=== PATIENT | female | born 2000 | race Caucasian/White ===

== ENCOUNTER → 2024-06-19 06:26 | Outpatient (CLI) | payer OTHER, SELFPAY ==
--- NOTE | 2024-06-19 06:28 | DI.US.S_ITS ---
PROCEDURE: US OB <= 14 WEEKS FETUS INDICATIONS: dating US OUTSIDE/PRIOR DATING DATA: First dating scan (date and location): 06/19/2024. Estimated date of delivery (NADJA) from first dating scan: 01/20/2020. TECHNIQUE: Real-time scanning was performed of the fetus and maternal pelvic organs, with image documentation. Endovaginal scanning was also performed to better visualize the fetus and maternal ovaries. COMPARISON: None. FINDINGS: Embryo: pole with crown-rump length measuring 2.6 cm, consistent with 9 weeks and 3 days. Heart rate: 152 beats per minute Maternal organs: Ovaries are within normal limits. IMPRESSION: Single live intrauterine consistent 9 weeks and 3 days. We strive to produce accurate, complete, and clear reports of imaging services. To assist us in improving patient care, this report was composed using standard report templates and voice recognition software. Therefore, it may contain abnormal punctuation, insertions and/or omissions. Occasional wrong-word or sound-alike substitutions may occur. Though we review the report and make efforts to correct it, we do recommend that the report be read carefully in proper context to recognize any text inaccuracies. Dictated by: Anoop Shin M.D. on 06/19/2024 at 8:33 Approved by: Anoop Shin M.D. on 06/19/2024 at 8:36
== END ==
LOC: US 06:28
PROVIDERS: Referring Provider Obstetrics & Gynecology; Visit Provider Obstetrics & Gynecology
DX: Z34.01 Encounter for supervision of normal first pregnancy, first trimester (principal); Z3A.09 9 weeks gestation of pregnancy
CPT/HCPCS: 76801; 76817

== ENCOUNTER → 2024-06-30 13:15 | Outpatient (CLI) | payer OTHER, SELFPAY ==
[2024-06-30 14:12] LABS: Add Manual Diff / Slide Review NO; Basophils Absolute Auto 0 /uL (0-100); Basophils Percent Auto 0.3 % (0-2); Eosinophils Absolute Auto 300 /uL (0-450); Eosinophils Percent Auto 2.9 % (2-4); Hematocrit 37.6 % (36-46); Lymphocytes Absolute Auto 1900 /uL (1100-4500); Lymphocytes Percent Auto 18.3 % (25-40); Mean Corpuscular HGB Conc 31.9 % (30-36); Mean Corpuscular Hemoglobin 20.6 PG (26-34); Mean Corpuscular Volume 64.4 fL (80-100); Monocytes Absolute Auto 800 /uL (0-900); Monocytes Percent Auto 7.8 % (3-14); Neutrophils Absolute Auto 7200 /uL (1500-7000); Neutrophils Percent Auto 70.7 % (50-75); Platelet Count 292 X10^3/uL (150-400); Red Blood Cell Count 5.84 X10^6/uL (4.0-5.2); Red Cell Distribution Width 16.1 % (11.6-14.8); White Blood Cell Count 10.2 X10^3/uL (4.5-11.0)
[2024-06-30 14:29] LABS: Anisocytosis 2+; Microcytosis 2+; Ovalocytes 1+
[2024-07-01 04:40] LABS: RPR Screen Non Reactive (Non Reactive)
[2024-07-02 09:36] LABS: Varicella IgG Antibody Reactive (Non Reactive)
[2024-07-02 19:45] LABS: HIV 1 & 2 Ab/Ag 4th Gen Combo NEGATIVE (NEGATIVE); Hep C Virus Ab w/Reflex Quant NEGATIVE s/c (NEGATIVE); Hepatitis B Surface Antigen NEGATIVE s/c (NEGATIVE); Rubella Antibody IgG 7.2 IU/mL (>15)
== END ==
PROVIDERS: Obstetrics & Gynecology; PCP Nurse Practitioner Primary Care; Referring Provider Nurse Practitioner Primary Care; Visit Provider Emergency Medicine
DX: Z34.00 Encounter for supervision of normal first pregnancy, unspecified trimester (principal)
CPT/HCPCS: 80055; 86787; 86803; 86850; 86900; 86901; 87086; 87389

== ENCOUNTER → 2024-08-28 14:55 | Outpatient (CLI) | payer OTHER, SELFPAY ==
--- NOTE | 2024-08-28 14:56 | DI.US.S_ITS ---
PROCEDURE: US OB >= 14 WEEKS FETUS INDICATIONS: 20 WEEK ANATOMY OUTSIDE/PRIOR DATING DATA: Last menstrual period (LMP): Unknown. LMP-based estimated date of delivery (NADJA): Not applicable. First dating scan (date and location): June 19, 2024. Estimated date of delivery (NADJA) from first dating scan: January 19, 2025. TECHNIQUE: Real-time scanning was performed of the fetus, with image documentation and biometric measurements. Endovaginal scanning: Not performed COMPARISON: [facility], OB <= 14 WEEKS FETUS, 06/19/2024, 7:03. FINDINGS: General: A single living intrauterine gestation is present. Presentation: Vertex. Placenta: Placental position is anterior , without previa. Amniotic fluid index: 18.7 cm, normal range is 5-24 cm. Single deepest vertical pocket is 5.8 cm. heart rate: 149 beats per minute. Maternal cervical canal: 3.6 cm long. Normal lower limit is 2.5 cm. biometrics: Biparietal diameter: 4.6 cm, 20 weeks and 0 days Head circumference: 17.0 cm, 19 weeks and 4 days Abdominal circumference: 14.9 cm, 20 weeks and 1 day Femur length: 3.1 cm, 19 weeks and 5 days Clinically estimated gestational age: 19 weeks and 3 days Composite gestational age from present scan: 19 weeks and 6 days Estimated weight and percentile: 322 g which correlates with the 75th percentile for gestational age. Anatomic survey: Neuro: Ventricles are non-dilated at less than 10 mm. Cisterna magna is normal at 3-11 mm. Cerebellum is normal in size and morphology. Nuchal skin fold: Normal at less than 6 mm between 14-21 weeks gestational age. Face: Nose and lips, facial profile are normal. Spine: No evidence for spina bifida. Heart: 4-chambered heart is present, with normal ventricular outflow tracts. Single echogenic focus within the left ventricle. Diaphragm: Diaphragm is intact. Stomach: Left-sided stomach is present. Kidneys: No hydronephrosis. Normal is less than 5 mm in 2nd trimester, less than 7 mm in 3rd trimester. Cord: 3-vessel cord has orthotopic insertion. Bladder: Normal in size. Extremities: All 4 extremities identified. IMPRESSION: Single living intrauterine gestation with estimated sonographic gestational age of approximately 19 weeks and 6 days. Normal interval growth has occurred. Estimated weight of approximately 322 g which correlates with the 75th percentile for gestational age. Small echogenic focus identified within the left ventricle. In the absence of other anatomic abnormalities or maternal risk factors, this finding is most likely a normal variant either representing the normal papillary muscle or chordae tendinae and is of doubtful clinical significance. Otherwise, normal routine second trimester anatomic screening survey. We strive to produce accurate, complete, and clear reports of imaging services. To assist us in improving patient care, this report was composed using standard report templates and voice recognition software. Therefore, it may contain abnormal punctuation, insertions and/or omissions. Occasional wrong-word or sound-alike substitutions may occur. Though we review the report and make efforts to correct it, we do recommend that the report be read carefully in proper context to recognize any text inaccuracies. Dictated by: Michael Crews M.D. on 08/29/2024 at 12:39 Approved by: Michael Crews M.D. on 08/29/2024 at 12:44
== END ==
LOC: US 14:56
PROVIDERS: PCP Nurse Practitioner Primary Care; Referring Provider Obstetrics & Gynecology; Visit Provider Obstetrics & Gynecology
DX: Z34.02 Encounter for supervision of normal first pregnancy, second trimester (principal); Z3A.19 19 weeks gestation of pregnancy
CPT/HCPCS: 76811

== ENCOUNTER → 2024-09-10 15:34 | Outpatient (CLI) | payer OTHER, SELFPAY ==
[2024-09-10 16:52] LABS: Bilirubin Urine UA NEGATIVE (NEGATIVE); Color Urine UA YELLOW; Glucose Urine UA NEGATIVE (Negative); Ketones Urine UA TRACE (NEGATIVE); Leukocyte Esterase Urine UA NEGATIVE (NEGATIVE); Nitrite Urine UA NEGATIVE (Negative); Occult Blood Urine UA NEGATIVE (Negative); Protein Urine UA TRACE (Negative); Specific Gravity Urine UA 1.020 (1.000-1.035); Urobilinogen Urine UA 1.0 E.U./dL (0.2)
[2024-09-10 16:58] LABS: pH Urine UA 7.0 (4.5-8.0)
[2024-09-10 16:59] LABS: Appearance Urine UA SL CLOUDY; Culture Indicated Urine Cult Not Indicated
== END ==
PROVIDERS: PCP Nurse Practitioner Primary Care; Visit Provider Obstetrics & Gynecology
DX: R82.998 Other abnormal findings in urine (principal)
CPT/HCPCS: 81001

== ENCOUNTER → 2024-09-10 16:15 | Outpatient (CLI) | payer OTHER, SELFPAY ==
[2024-09-10 17:21] LABS: HEMOLYSIS < 15 (0-50); Iron 80 ug/dL (37-170)
[2024-09-10 17:33] LABS: Percent Iron Saturation 27 % (15-50); Total Iron Binding Capacity 292 ug/dL (265-497); Transferrin 256 mg/dL (206-381)
== END ==
PROVIDERS: Obstetrics & Gynecology; PCP Nurse Practitioner Primary Care; Referring Provider Obstetrics & Gynecology; Visit Provider Obstetrics & Gynecology
DX: O99.119 Other diseases of the blood and blood-forming organs and certain disorders involving the immune mechanism complicating pregnancy, unspecified trimester (principal); D75.89 Other specified diseases of blood and blood-forming organs
CPT/HCPCS: 81001; 82105; 83021; 83540; 83550

== ENCOUNTER → 2024-10-21 12:55 | Outpatient (CLI) | payer OTHER, SELFPAY ==
[2024-10-21 14:56] LABS: Hematocrit 34.6 % (36-46); Hemoglobin 10.9 g/dL (12.0-16.0)
[2024-10-21 15:24] LABS: GTT (PREG) 1 Hour PP 50gm Dose 121 mg/dL (76-139)
== END ==
PROVIDERS: PCP Nurse Practitioner Primary Care; Referring Provider Nurse Practitioner Primary Care; Visit Provider Obstetrics & Gynecology
DX: Z34.02 Encounter for supervision of normal first pregnancy, second trimester (principal)
CPT/HCPCS: 36415; 82950; 85014; 85018; 86850

== ENCOUNTER 2024-11-13 10:57 | Outpatient (CLI) | payer OTHER, SELFPAY | END 2024-11-13 11:41 | disposition home or self-care (01) | LOC: LABOR 11:13 → OB 12:11 | PROVIDERS: PCP Nurse Practitioner Primary Care; Referring Provider Obstetrics & Gynecology; Visit Provider Obstetrics & Gynecology | DX: O36.8130 Decreased fetal movements, third trimester, not applicable or unspecified (principal); Z3A.30 30 weeks gestation of pregnancy | CPT/HCPCS: 59025; G0378; G0379 ==

== ENCOUNTER → 2024-12-02 15:39 | Outpatient (CLI) | payer OTHER, SELFPAY ==
--- NOTE | 2024-12-02 15:40 | DI.US.S_ITS ---
PROCEDURE: US OB FOLLOW UP INDICATIONS: LEFT VENTRICLE ECHOGENIC FOCI. GROWTH. OUTSIDE/PRIOR DATING DATA: The calculations are made using the NADJA of 01/19/2025. TECHNIQUE: Real-time scanning was performed of the fetus, with image documentation and biometric measurements. Endovaginal scanning: Not performed COMPARISON: [facility], , US OB >= 14 WEEKS FETUS, 08/28/2024, 15:11. FINDINGS: General: A single living intrauterine gestation is present. Presentation: Vertex. Placenta: Placental position is anterior , without previa. Amniotic fluid index: 10.2 cm, normal range is 5-24 cm. Single deepest vertical pocket is 5.0 cm. heart rate: 130 beats per minute. Maternal cervical canal: Not evaluated. biometrics: Biparietal diameter: 8.4 cm, 33 weeks 6 days Head circumference: 30.3 cm, 33 weeks 5 days Abdominal circumference: 30.2 cm, 34 weeks 1 day Femur length: 6.5 cm, 33 weeks 3 days Clinically estimated gestational age: 33 weeks 1 day Composite gestational age from present scan: 33 weeks 6 days Estimated weight and percentile: 2291 g, 64% Other: Not applicable. IMPRESSION: 1. Single live intrauterine consistent with 33 weeks and 6 days. 2. Estimated weight is in the 64th percentile. 3. Redemonstration of possible echogenic intracardiac focus versus echogenic chordae tendineae. 4. The urinary bladder and stomach appear prominent, of uncertain clinical significance. Consider follow-up ultrasound. We strive to produce accurate, complete, and clear reports of imaging services. To assist us in improving patient care, this report was composed using standard report templates and voice recognition software. Therefore, it may contain abnormal punctuation, insertions and/or omissions. Occasional wrong-word or sound-alike substitutions may occur. Though we review the report and make efforts to correct it, we do recommend that the report be read carefully in proper context to recognize any text inaccuracies. Dictated by: Anoop Shin M.D. on 12/03/2024 at 8:44 Approved by: Anoop Shin M.D. on 12/03/2024 at 8:46
== END ==
LOC: US 15:40
PROVIDERS: PCP Nurse Practitioner Primary Care; Referring Provider Obstetrics & Gynecology; Visit Provider Obstetrics & Gynecology
DX: O28.3 Abnormal ultrasonic finding on antenatal screening of mother (principal); Z3A.33 33 weeks gestation of pregnancy
CPT/HCPCS: 76816

== ENCOUNTER → 2024-12-25 15:47 | Outpatient (CLI) | payer OTHER, SELFPAY ==
--- NOTE | 2024-12-25 15:48 | DI.US.S_ITS ---
PROCEDURE: US OB FOLLOW UP INDICATIONS: OB f/u prominent bladder OUTSIDE/PRIOR DATING DATA: Working NADJA 01/19/2025 TECHNIQUE: Real-time scanning was performed of the fetus, with image documentation and biometric measurements. Endovaginal scanning: Not obtained COMPARISON: [facility], US, OB FOLLOW UP, 12/02/2024, 16:10. FINDINGS: General: A single living intrauterine gestation is present. Presentation: Vertex. Placenta: Placental position is anterior , without previa. Amniotic fluid index: 12 cm, normal range is 5-24 cm. Single deepest vertical pocket is 3.8 cm. heart rate: 13.3 beats per minute. Maternal cervical canal: Not evaluate biometrics: Clinically estimated gestational age: 36 weeks 3 days Other: Limited view of the left ventricle on current exam. Prominent stomach and urinary bladder is unchanged. Probable appearance of a single nuchal cord. IMPRESSION: Single live intrauterine with gestational age of 36 weeks 3 days. Appearance of likely single nuchal cord. Persistent prominence of the stomach in urinary bladder. Poorly visualized left ventricle. Persistence of echogenic intraventricular focus cannot be excluded, as identified on prior exam. We strive to produce accurate, complete, and clear reports of imaging services. To assist us in improving patient care, this report was composed using standard report templates and voice recognition software. Therefore, it may contain abnormal punctuation, insertions and/or omissions. Occasional wrong-word or sound-alike substitutions may occur. Though we review the report and make efforts to correct it, we do recommend that the report be read carefully in proper context to recognize any text inaccuracies. Dictated by: Aracelis Hawkins M.D. on 12/26/2024 at 16:34 Approved by: Aracelis Hawkins M.D. on 12/26/2024 at 16:38
== END ==
LOC: US 15:48
PROVIDERS: PCP Nurse Practitioner Primary Care; Referring Provider Obstetrics & Gynecology; Visit Provider Obstetrics & Gynecology
DX: O28.3 Abnormal ultrasonic finding on antenatal screening of mother (principal); Z3A.36 36 weeks gestation of pregnancy
CPT/HCPCS: 76816

== ENCOUNTER → 2024-12-30 09:23 | Outpatient (CLI) | payer OTHER, SELFPAY ==
[2024-12-31 13:50] LABS: Strep Grp B PCR POS for Grp B Strep
== END ==
PROVIDERS: PCP Nurse Practitioner Primary Care; Visit Provider Obstetrics & Gynecology
DX: Z36.85 Encounter for antenatal screening for Streptococcus B (principal)
CPT/HCPCS: 87653

== ENCOUNTER 2025-01-06 14:58 | Observation (INO) | payer OTHER, SELFPAY | END 2025-01-06 15:43 | disposition home or self-care (01) | PROVIDERS: Admitting Provider Obstetrics & Gynecology; PCP Nurse Practitioner Primary Care; Referring Provider Obstetrics & Gynecology; Visit Provider Obstetrics & Gynecology | DX: Z34.03 Encounter for supervision of normal first pregnancy, third trimester (principal); Z3A.38 38 weeks gestation of pregnancy | CPT/HCPCS: 59025; G0378; G0379 ==

== ENCOUNTER 2025-01-22 09:10 | Inpatient (IN) | payer OTHER, SELFPAY ==
--- NOTE | 2025-01-22 09:46 | DI.US.S_ITS ---
PROCEDURE: US OB BIOPHYSICAL PROFILE INDICATIONS: postdates OUTSIDE/PRIOR DATING DATA: The calculations are made using the NADJA of 01/19/2025. TECHNIQUE: Real-time scanning was performed of the fetus, with image documentation and biometric measurements. Biophysical profile was also obtained. Endovaginal scanning: Not performed. COMPARISON: [facility], OB FOLLOW UP, 12/25/2024, 16:24. FINDINGS: General: A single living intrauterine gestation is present. Presentation: Vertex Placenta: Placental position is anterior, without previa. Amniotic fluid index: 3.6 cm, normal range is 5-24 cm. Single deepest vertical pocket is 3.6 cm. heart rate: 143 beats per minute. Maternal cervical canal: 2.9 cm long. Normal lower limit is 2.5 cm. biometrics: Biparietal diameter: 9.3 cm, 37 weeks 6 days, 31st percentile Head circumference: 34.2 cm, 39 weeks 3 days, 28th percentile Abdominal circumference: 37.9 cm, 41 weeks 6 days, 97th percentile Femur length: 7.5 cm, 38 weeks 1 day, 12th percentile Clinically estimated gestational age: 40 weeks 3 days Composite gestational age from present scan: 39 weeks 2 days Estimated weight and percentile: 4052 g, 78th percentile Biophysical profile: Tone: 0 points. Movement: 2 points. Respiration: 2 points. Largest pocket of fluid: 2 points. IMPRESSION: 1. Single live intrauterine post term with vertex positioning. 2. Amniotic fluid index is 3.6 cm, correlate for oligohydramnios. 3. Biophysical profile score is 6 of 8, with 0 points for tone. 4. Estimated weight 4052 g, 78th percentile for gestational age. Abdominal circumference is at the 97th percentile. Approved by: Alfredo Roy M.D. on 01/22/2025 at 11:29
[2025-01-22 13:25] VITALS: BP 115/65
[2025-01-22 14:10] LABS: Hematocrit 32.9 % (36-46); Hemoglobin 10.4 g/dL (12.0-16.0); Lymphocytes Absolute Auto 1500 /uL (1100-4500); Mean Corpuscular HGB Conc 31.6 % (30-36); Mean Corpuscular Hemoglobin 19.5 PG (26-34); Mean Corpuscular Volume 61.7 fL (80-100); Platelet Count 200 X10^3/uL (150-400)
[2025-01-22 14:12] LABS: Add Manual Diff / Slide Review SLIDE REVIEW
[2025-01-22 14:27] LABS: Anisocytosis 1+; Hypochromasia 1+; Microcytosis 2+
--- NOTE | 2025-01-22 15:43 | P.HPOB_ITS ---
OB HPI Date/Time Date of admission: 01/22/25 Date Patient Seen: 01/22/25 Time Patient Seen: 15:00 History of Present Condition Chief complaint: possible SROM NADJA Calculator 2 Estimated Delivery Date Method Current WG Current Estimate 01/19/25 Ultrasound #1 40w 3d Other Estimates 01/12/25 LMP (Uncertain) 41w 3d Estimated Gestational Age (weeks): 40w3d : 1 Narrative: Pt presented after calling with concerns of SROM early this AM, awakened to bed soaking wet. Nitrazine negative on arrival with reactive Cat 1 tracing. BPP obtained significant for 07/20 with CAMELIA 3.6cm (single pocket of fluid) and patient admitted for induction vs augmentation of labor. course notable for +GBS. PMHx non-contributory. Pt endorses decreased FM, scant brown vaginal discharge without altaf bleeding, mild cramping without distinct contractions. care: good care Dating criteria OB: based on 1st trimester US only Ultrasounds: normal 1st trimester US and normal mid trimester US Obstetrical complications: none Medical complications OB: none External History : 1 Indications Indication for induction OB: other (possible high SROM, +GBS) and post dates Preadmission Labs Last OB Lab Results: 2 Blood Type A Positive Today, 13:45 Antibody Screen Negative Today, 13:45 Hct, (36-46) 32.9 % L Today, 13:45 Hgb, (12.0-16.0) 10.4 g/dL L Today, 13:45 Hep Bs Antigen, (NEGATIVE) Negative s/c 06/30/24, 13: 20 Hepatitis C Antibody, (NEGATIVE) Negative s/c 5, 13:20 Rubella Antibody, (>15) 7.2 IU/mL L 06/30/24, 13:20 VZV IgG Antibody, (Non Reactive) Reactive 5, 13:20 Glucose 1 Hr 50 gm, (76-139) 121 mg/dL 10/21/24, 1 4:05 Group B Strep (PCR) Pos for grp b strep H 12/30/24, 09:15 -: Chlamydia screen: negative, Gonorrhea screen: negative and Urine: negative -: PAP smear: Normal Genetic Screens: Cell-free DNA: Normal and Alpha-fetoprotein: Normal External Labs -: Urine: negative Evaluation Evaluation Baseline heart rate: 140 Variability: Moderate (6-25) monitor accelerations: Present Monitor Decelerations: Absent Uterine Contraction Intensity: Mild Category of Tracing: Reactive Status: Category l Dilation (cm): 1 Effacement (%): 30 Dilation: 1-2 cm Effacement: 0-30% station: -3 Position of cervix: mid Consistency: soft Guzman score: 4 Non-invasive Membranes Rupture Test: negative [facility] Medical History (Updated 11/05/24 @ 16:29 by Kevin Morales MD) Low mean corpuscular volume (MCV) during Ankle fracture (~2014) Surgical History (Updated 06/13/24 @ 07:11 by Kaitlyn Houser) Gem teeth extracted Family History (System 06/13/24 @ 07:11 by Kaitlyn Houser) Mother Depression Grandmother Hypertension Diabetes mellitus Grandfather Family estrangement Father Gout Diabetes mellitus Grandfather Diabetes mellitus Gout End stage kidney disease Hypertension Brother Depression Anxiety ADHD Social History (System 06/13/24 @ 07:11 by Kaitlyn Houser) marital status: unmarried,living together number of children: 0 household members: significant other lives independently: Yes caregiver/support person: No housing: apartment pets and animals: No education level: college (some college) occupational status: unemployed current occupational exposures/hazards: No special katherine needs: No travel history: over 6 months ago seatbelt use: always helmet use: Yes water heater temp set < 120 deg: Yes working smoke detector in home: Yes fire extinguisher in home: Yes carbon monox detector in home: Yes firearms in home: No do you feel safe at home: Yes second hand exposure: No alcohol intake: former (extremely rarely when not ) substance use type: marijuana (not while /) during the past year weight has: remained stable well-balanced diet: rarely or never daily servings fruits/ve-4 (entirely fruit, almost never eats vegetables) caffeine: No (stopped drinking Red Bull w/ +UPT) Type(s) of exercise: walking Meds Home Medications and Allergies Home Medications ?Medication ?Instructions ?Recorded ?Confirmed ?Type buspirone 7.5 mg tablet 7.5 mg PO TID 06/11/2401/22 History hydroxyzine HCl 50 mg tablet 50 mg PO BID PRN itching 06/11/24 01/22/25 History vitamin-ferrous sulfate tab PO .1 PRN provide r order 06/11/24 01/20/25 History 27 mg iron-folic acid 0.8 mg tablet sertraline 100 mg tablet 100 mg PO DAILY 06/11/2401/06 History famotidine 20 mg tablet 20 mg PO DAILY #60 tabs 09/0501/22/25 Rx breast pump #1 ea 11/05/24 01/20/25 Rx [id number] antigen-AS01E 0.5 ml IM ONCE #1 ea 12/12/2 5 01/22/25 Rx adjuvant(PF) 120 mcg/0.5 mL IM suspension, kit Allergies Allergy/AdvReac Type Severity Reaction Status Date / Time egg Allergy Intermediate Swelling Verified 01/20/25 12:19 of Lip/Tongue/Throat Review of Systems Review of Systems ROS: Yes All systems reviewed with the patient and are negative except as otherwise documented OB Exam Narrative Exam Narrative: maternal VSS/afebrile, reviewed in OBIX HENMT Head: normal to inspection Resp Effort & Inspection: normal respiratory effort and able to speak in complete sentences Cardio Rate: regular rate Extremities Lower extremity: Yes normal to inspection GI Palpation: Yes soft Other: gravid, bing cephalic 7# Other: deferred Objective Labs 01/22/25 13:45 Labs: Laboratory Results - last 24 hr 01/22/25 13:45 WBC 11.0 RBC 5.33 H Hgb 10.4 L Hct 32.9 L MCV 61.7 L MCH 19.5 L MCHC 31.6 RDW 16.5 H Plt Count 200 Neut % (Auto) 77.9 H Lymph % (Auto) 13.5 L Guadalupe % (Auto) 7.2 Eos % (Auto) 1.1 L Baso % (Auto) 0.3 Neut # (Auto) 8600 H Lymph # (Auto) 1500 Guadalupe # (Auto) 800 Eos # (Auto) 100 Baso # (Auto) 0 RBC Morphology See below Hypochromasia 1+ H Anisocytosis 1+ H Microcytosis 2+ H Blood Type A Positive Antibody Screen Negative Assessment and Plan Assessment and Plan Assessment and Plan narrative: 24yo G1 at 40w4d by early first trimester US presents with concerns for SROM, negative nitrazine but new oligohydramnios with recommendation to proceed with IOL IOL misoprostol 50mg PO q4h, reassess with planned ibarra balloon placement for additional mechanical ripening vs IV pitocin pending response CEFM/toco start abx for +GBS, possible high SROM/leak anticipate Time-Based Coding :: [TOTAL MINUTES] spent with patient and on the chart (including review of chart, obtaining history, exam, reviewing outside data, placing orders, documenting exam and treatment plan, and counseling patient) on [DATE].
[2025-01-22] MEDS: AMPICILLIN 2,000 MG in SODIUM CHLORIDE 0.9% 100 ML 200 MG IV (16:00)
[2025-01-22] MEDS: AMPICILLIN 1,000 MG in SODIUM CHLORIDE 0.9% 100 ML 100 MG IV (20:41)
[2025-01-22] MEDS: SERTRALINE 50 MG TABLET 100 MG PO (21:57)
[2025-01-22] MEDS: ZOLPIDEM 5 MG TABLET PO (22:01)
[2025-01-23 00:30] VITALS: TEMP 36.6
[2025-01-23] MEDS: ACETAMINOPHEN 325 MG TABLET 975 MG PO (00:30)
[2025-01-23] MEDS: AMPICILLIN 1,000 MG in SODIUM CHLORIDE 0.9% 100 ML 100 MG IV ×2 (00:54→08:45)
[2025-01-23] MEDS: ONDANSETRON 4 MG/2 ML INJ IV (02:33)
[2025-01-23] MEDS: LACTATED RINGERS 1,000 ML 999 ML IV (03:10)
--- NOTE | 2025-01-23 03:53 | P.PCN_ITS ---
[facility] <Nika Wilson CRNA - Last Filed: 01/23/25 04:07> Pre-procedure Procedure: Continuous Lumbar Epidural for L&D PMH/ROS narrative: Term with PMH anxiety/depression requests lumbar epidural for labor pain. PSH/Anesthesia history narrative: Prentiss teeth - PONV Exam narrative: See pre-anesthesia eval. ASA Class: II Labs: Hct 32.9 % (36-46) L 01/22/25 13:45 Plt Count 200 X10^3/uL (150-400) 01/22/25 13:45 Medications: Current Medications Generic Name Dose Route Start Last Admin Trade Name Freq PRN Reason Stop Dose Admin Carboprost Tromethamine 250 mcg 01/22/25 10:22 Carboprost 250 Mcg/Ml Ampul IM Q90M PRN Bleeding Oxytocin/Lactated Ringer's 30 unit in 500 mls @ 200 mls/hr 01/22/25 10:22 Oxytocin Premix IV CONT PRN Bleeding Protocol Tranexamic Acid 1,000 mg/ 100 mls @ 600 mls/hr 01/22/25 10:22 Sodium Chloride IV NOW PRN Bleeding Ampicillin Sodium 1,000 mg/ 100 mls @ 0 mls/hr 01/22/25 19:45 01/23/25 00:54 Sodium Chloride IV 1,000 mg/hr Q4H JEEVAN 100 mls/hr Per Protocol Administration Lidocaine HCl 20 ml 01/22/25 10:22 Lidocaine 1% 20 Ml INJ INTRA-OP PRN Post Delivery Methylergonovine Maleate 0.2 mg 01/22/25 10:22 Methylergonovine 0.2 Mg Tablet PO Q6HR PRN Heavy Bleeding Methylergonovine Maleate 0.2 mg 01/22/25 10:22 Methylergonovine 0.2 Mg/Ml Vial IM NOW PRN Bleeding Mineral Oil 30 ml 01/22/25 10:22 Mineral Oil 30 Ml Udc TOP PRN PRN Version Misoprostol 800 mcg 01/22/25 10:22 Misoprostol 200 Mcg Tablet DE NOW PRN Bleeding Misoprostol 400 mcg 01/22/25 10:22 Misoprostol 200 Mcg Tablet SL NOW PRN Bleeding Misoprostol 50 mcg 01/22/25 10:22 01/22/25 21:56 Misoprostol 25 Mcg Tablet PO 50 mcg Q4H PRN Administration cervical ripening Naloxone HCl 0.2 mg 01/22/25 10:22 Naloxone 0.4 Mg/Ml Vial IV Q2MIN PRN Opiate Reversal Ondansetron HCl 4 mg 01/23/25 01:22 01/23/25 02:33 Ondansetron 4 Mg/2 Ml Inj IV 4 mg Q4HR PRN Administration Nausea And Vomiting Oxytocin 10 unit 01/22/25 10:22 Oxytocin 10 Unit/Ml Vial IM NOW PRN Bleeding Sertraline HCl 100 mg 01/22/25 21:00 01/22/25 21:57 Sertraline 50 Mg Tablet PO 100 mg BEDTIME JEEVAN Administration Zolpidem Tartrate 5 mg 01/22/25 18:39 01/22/25 22:01 Zolpidem 5 Mg Tablet PO 5 mg BEDTIME PRN Administration Sleep Allergies: Allergies Allergy/AdvReac Type Severity Reaction Status Date / Time egg Allergy Intermediate Swelling Verified 01/20/25 12:19 of Lip/Tongue/Throat Procedure Insertion date: 01/23/25 Prep/Local: 1% lidocaine (and CHG to back for skin prep.) Interspace: L3/4 Patient position: sitting Needle: 18 gauge Linda Loss of resistance with: saline ZULEYMA at (cm): 6 Catheter placed at SKIN (cm): 12 Catheter in SPACE (cm): 6 Insertion: No CSF, No Blood, No Paresthesia with insertion, No Paresthesia with injection and No Test dose reaction Initial Medications TEST DOSE time: 03:30 TEST DOSE: 1.5% lidocaine with epinephrine 1:200k (mL): 3 BOLUS DOSE time: 03:33 BOLUS DOSE (mL): 10 BOLUS DOSE med: 0.25% bupivacaine Infusion INFUSION: 0.125% bupivacaine and with fentanyl 2 mcg/mL Initial rate (mL/hr): 10 Subsequent interventions: 0400 - Pre-epidural contraction pain rated at 7/10. Now reporting no longer sensing contractions. Block more dense on right side, RN to reposition to L side during next position change. - GREGORY RAMIREZ Post-procedure Anesthesia date START: 01/23/25 Anesthesia time START: 03:16 <Buffy Merritt DO - Last Filed: 01/23/25 12:48> Infusion Subsequent interventions: 0400 - Pre-epidural contraction pain rated at 7/10. Now reporting no longer sensing contractions. Block more dense on right side, RN to reposition to L side during next position change. - AB, DOCTOR'S ASSISTANT 10:37 - Pt requests bolus for epidural. Labor is progressing with thick lip remaining. Pt appears very uncomfortable with contractions; able to move BLE, R>L, and go onto hands and knees. Bolused epidural with lido 2% PF 8 ml in divided doses. Increased infusion rate to 12 ml/hr. Ashleigh Post-procedure Anesthesia date END: 01/23/25 Anesthesia time END: 11:30 Post-procedure Anesthesia Assessment: Yes CV function: HR/BP stable, Yes Resp function: RR/sat/airway adequate, Yes Post-op hydration adequate, Yes Pain control adequate, Yes Nausea & vomiting absent, Yes Temperature > 36 C, Yes Mental status appropriate and No Anesthesia complications
[2025-01-23] MEDS: LACTATED RINGERS 1,000 ML 100 ML IV ×2 (06:30→08:09)
--- NOTE | 2025-01-23 07:19 | PM.OBPNLAB ---
Date/Time Date Patient Seen: 01/23/25 Time Patient Seen: 06:20 Pain Control Pain control: epidural Comments: feeling more comfortable with epidural, feeling more pressure but less pain Pelvic Exam Dilation (cm): 6 Effacement (%): 80 station: -3 Amniotic membrane status: Bulging Comments: AROM, small volume clear fluid at 07:10 Contractions Contractions on admission: none Monitor mode: External Contraction intensity: Mild Status status: Category l Heart Rate Baseline: 120 Monitor Accelerations: Present Monitor Decelerations: Absent Assessment and Plan Assessment: active labor and induction ongoing Plan: continuous present management Comments: 24 yo G1 who was admitted with BPP 07/20 yesterday (off for CAMELIA) - s/p 50mcg Cytotec x3 - AROM of bulging bag at 07:10 - Plan to start Pitocin in 1-2h pending contraction pattern - Reassuring FHT - cpehalic on arrival - GBS +, on ampacillin - epidural in place for pain control
[2025-01-23] MEDS: OXYTOCIN PREMIX 30 UNIT/500 ML PLAST..BAG IV (08:08)
[2025-01-23] MEDS: FENT 2MCG/ML BUPIV 0.125% EPI 200 MCG/100 ML PLAST..BAG 10 MCG EPIDURAL (08:50)
--- NOTE | 2025-01-23 10:10 | PM.OBPNLAB ---
Date/Time Date Patient Seen: 01/23/25 Time Patient Seen: 10:10 Pain Control Pain control: tolerating well and epidural Pelvic Exam Dilation (cm): 9.5 Effacement (%): 100 station: 0 Amniotic membrane status: Ruptured Contractions Monitor mode: External Pitocin rate (mU/min): 4 Contraction pattern: Regular Contraction intensity: Strong/Firm Status status: Category l Assessment and Plan Assessment: active labor Plan: continuous present management Comments: Expect
[2025-01-23] MEDS: OXYTOCIN PREMIX 30 UNIT/500 ML PLAST..BAG 200 UNIT IV (11:35)
[2025-01-23] MEDS: TRANEXAMIC ACID 1,000 MG in SODIUM CHLORIDE 0.9% 100 ML 600 MG IV (11:38)
[2025-01-23] MEDS: METHYLERGONOVINE 0.2 MG/ML VIAL IM (11:39)
[2025-01-23] MEDS: LIDOCAINE 1% 20 ML INJ (12:00)
[2025-01-23] MEDS: fentaNYL 100 MCG/2 ML INJ IV (12:04)
[2025-01-23 12:26] LABS: Add Manual Diff / Slide Review NO; Hematocrit 31.3 % (36-46); Hemoglobin 9.9 g/dL (12.0-16.0); Lymphocytes Absolute Auto 1200 /uL (1100-4500); Mean Corpuscular HGB Conc 31.5 % (30-36); Mean Corpuscular Hemoglobin 19.5 PG (26-34); Mean Corpuscular Volume 61.9 fL (80-100); Platelet Count 166 X10^3/uL (150-400)
[2025-01-23 12:34] LABS: INR 1.0 (0.9-1.3); Prothrombin Time 10.9 SECONDS (9.4-12.5)
[2025-01-23 12:40] LABS: Anisocytosis 1+; Poikilocytosis 1+
--- NOTE | 2025-01-23 12:51 | PM.OBPRVD ---
Labor & Delivery Delivery date: 01/23/25 Delivery Time: 11:30 Cervical ripening method: per misoprostal protocol Delivery augmentation: rupture of membranes and pitocin Delivery monitor: external FHT Route of delivery: L&D Laceration Description: Perineal - 1st Degree Delivery repair: vicryl Estimated blood loss (mL): 1,800 Quantitative Blood Loss: 1,853 Anesthesia Type: Epidural Complications: Shoulder dystocia, PPH Narrative: PROCEDURE: 24 yo G1 who presented at 40w3d with concern for SROM but nitrazine was negative. BPP was 6/8 for new oligohydrmanios. BPP also showed EFW of 4052 with AC at 97th%ile. Due to new oligo at term, she was admitted for mIOL. She was started on Misoprostol per protocol progressed through the 1st stage. AROM occured at 07:10 with small volume clear fluid. Pain was controlled with epidural. The patient progressed through the 2nd stage and delivered a viable male infant with APGARs 6/8 at 11:30 via [id number]. Nuchal cord x1 was present and reduced at the perineum. After delivery of head at 11:29, shoulder dystocia was noted and articulated. Russell maneuver performed and delivery of posterior shouldered with resolution of shoulder dystocia and subsequent delivery of within 45 second. Thick mec stained fluid was present with delivery. The cord was cut and clamped immediately due to poor tone, color and respiratory effort and was transferred to the warmer where towel stimulation and deep suction produced 3cc of thick meconium no PPV was needed and HR was nml throughout. APGASRS were 6 and 8 at one and 5 min respectively. The placenta was delivered with gentle cord traction, and appeared complete. Pitocin was started per protocol. Brisk vaginal bleeding was noted so 1g TXA was administered followed by Methergine 0.2mg then rectal cytotec 800mcg. Pt was presyncopal during this time and not oriented to place or time so oxygen was administered. Fundal massage was continued with uterine tone appropriate. The perineum and vagina were inspected with a first degree laceration. with continued bleeding, cervix was inspected and appeared complete. Pt was give Fentanyl due to pain during exam. Bleeding slowed and uterus remained firm. Needle and sponge counts were correct.? The vagina was inspected and no items were left in situ. PREPROCEDURE DIAGNOSIS: Intrauterine at 40w4d Oligohydramnios GBS positive RHpositive] POSTPROCEDURE DIAGNOSIS: Intrauterine at 40w4d, delivered Same as preprocedure hemorrhage Shoulder dystocia Nuchal cord Plan for aftercare: Routine care
--- NOTE | 2025-01-23 13:01 | PM.EVENT ---
Event Note Date Patient Seen: 01/23/25 Time Patient Seen: 12:40 Event Note (Rapid Response, Code, or fall): I was called to bedside by delivering provider to help assess for any cervical laceration. The patient had a vaginal delivery prior to my arrival complicated by shoulder dystocia. Uterine atony was encountered and hemorrhage had occurred. EBL just under 2 L. Bleeding much better controlled at this time however there is question of whether a cervical laceration could be present. I do not sterile gloves and was able to perform an exam both with a speculum and manually, using a ring forceps to evaluate the circumference of the cervix. Although ragged appearing and oozing, there were no cervical lacerations identified. Her bleeding is stable at this time. Her vital signs are stable. Labs were sent and are reassuring. Continue recovery phase. Nory Stacy DO
[2025-01-23 13:20] LABS: Fibrinogen 452 mg/dL (238-498)
[2025-01-23] MEDS: ACETAMINOPHEN 325 MG TABLET 650 MG PO ×2 (16:47→23:35)
[2025-01-23] MEDS: DERMOPLAST SPRAY 20% 60 ML 1 SPRAY TOP (16:47)
[2025-01-23] MEDS: SERTRALINE 50 MG TABLET 100 MG PO (21:05)
[2025-01-23] MEDS: LANOLIN OINT 7 GM 1 APPLIC TOP (21:05)
[2025-01-24 08:46] LABS: Hematocrit 29.7 % (36-46); Hemoglobin 9.4 g/dL (12.0-16.0)
--- NOTE | 2025-01-24 10:06 | P.DS_ITS ---
Discharge Providers Provider Date of admission: 01/22/25 09:10 Discharge Date: 01/24/25 Primary care physician: NILDA Foreman Consults: 01/23/25 15:54 Consult to Job Tracer Routine Comment: Discharge provider: Nory Stacy DO Summary Hospital Course Date Patient Seen: 01/24/25 Time Patient Seen: 10:06 Diagnoses: S/p vaginal delivery hemorrhage Peripartum Data Delivery Method: Natural Vaginal Laceration Description: Perineal - 1st Degree complications: uterine atony [place] 1: Gender: Male Disposition of : home Discharge Diagnosis (1) Vaginal delivery: Status: Acute Problem Details: Routine care (2) hemorrhage: Status: Acute Problem Details: Appropriate Hb drop. Continue iron supplementation (3) Shoulder dystocia during labor and delivery: Status: Acute Status at Discharge Cognitive/behavioral status at discharge: oriented Functional status at discharge: independent ambulation Time Spent with Patient Time attestation: Total time spent providing and/or coordinating discharge services: Time spent: Greater than 30 minutes Objective Labs 01/24/25 08:34 Labs: Laboratory Results - last 24 hr 01/23/25 01/24/25 12:07 08:34 WBC 15.6 H RBC 5.06 Hgb 9.9 L 9.4 L Hct 31.3 L 29.7 L MCV 61.9 L MCH 19.5 L MCHC 31.5 RDW 15.9 H Plt Count 166 Neut % (Auto) 84.2 H Lymph % (Auto) 7.6 L [place] % (Auto) 7.7 Eos % (Auto) 0.2 L Baso % (Auto) 0.3 Neut # (Auto) 93908 H Lymph # (Auto) 1200 [place] # (Auto) 1200 H Eos # (Auto) 0 Baso # (Auto) 0 RBC Morphology Not Reportable Poikilocytosis 1+ H Anisocytosis 1+ H PT 10.9 INR 1.0 Fibrinogen 452 Exam Vital Signs (past 8 hours): Hb: 127/73, P: 79, RR 16, Temp 36.7, O2 sat 98% RA Const General: healthy appearing Orientation: alert, awake and oriented x3 Neck Neck: normal visual inspection Resp Effort & Inspection: normal respiratory effort and no respiratory distress Cardio Rate: regular rate Rhythm: regular rhythm GI Inspection: non-distended Palpation: soft Other: Fundus firm below umbilicus Skin General: no rashes or lesions noted Neuro General: patient alert, patient awake and patient oriented x3 Extrem Other: 1+ pitting edema BLE, symmetric Psych Appearance: grossly normal Discharge Plan Discharge Plan Patient Disposition: Home Discharge orders & Medications Prescriptions: New ibuprofen 600 mg tablet 600 mg PO Q6H PRN (Reason: mild pain (scale score 1-4)) Qty: 60 0RF acetaminophen 325 mg tablet 650 mg PO Q6H PRN (Reason: mild pain (scale score 1-4)) Qty: 60 0RF docusate sodium 250 mg capsule 250 mg PO BEDTIME Qty: 30 0RF Continued famotidine 20 mg tablet 20 mg PO DAILY Qty: 60 2RF (DME) breast pump Device See Rx Instructions .ROUTE .MEDSUPPLY Qty: 1 0RF Rx Instructions: double electric breast pump vit-ferrous sulfat-FA 27 mg iron- 0.8 mg tablet PO .1 PRN (Reason: provider order) sertraline 100 mg tablet 100 mg PO DAILY buspirone 7.5 mg tablet 7.5 mg PO TID hydroxyzine HCl 50 mg tablet 50 mg PO BID PRN (Reason: itching) Discontinued RSVPreF3 antigen-AS01E (PF) 120 mcg/0.5 mL suspension for reconstitution 0.5 ml IM ONCE Qty: 1 0RF Follow up/Referrals: Mark Bowens ARNP [Primary Care Provider, Family Practice] Activity Restrictions/Additional Instructions: Pelvic Rest for 6 weeks: Nothing in the vagina, no tampons, no douching, no intercourse, no submerging in the bathtub or jacuzzi. Diet/Activity/Treatments Diet: Diet as Tolerated Activity: As tolerated Cold/Heat Therapy: Can use cold packs and hot packs as needed Skin/Wound/Dressing Care Skin care: Can use demoplast and witch néstor pads Report to your healthcare provider any signs of infection, such as:: chills, fever and increased pain Visit Report/Discharge Packet Stand Alone Forms: Patient Portal/API, Stroke Signs & Symptoms Discharge Data Primary Care Provider: Mark Bowens
[2025-01-24 18:59] VITALS: BP 115/65; TEMP 36.6
== END 2025-01-24 19:10 | disposition home or self-care (01) | DRG 560 ==
PROVIDERS: Family Medicine; Student in an Organized Health Care Education/Training Program; Admitting Provider Obstetrics & Gynecology; PCP Nurse Practitioner Primary Care; Referring Provider Obstetrics & Gynecology; Visit Provider Obstetrics & Gynecology
DX: O41.03X0 Oligohydramnios, third trimester, not applicable or unspecified (principal); O72.1 Other immediate postpartum hemorrhage; O99.824 Streptococcus B carrier state complicating childbirth; Z3A.40 40 weeks gestation of pregnancy; Z37.0 Single live birth; O70.0 First degree perineal laceration during delivery; Z67.10 Type A blood, Rh positive
CPT/HCPCS: 59025; 59050; 59200; 59409; 76819; 84112; 85014; 85018; 85025; 85384; 85610; 86850; 86900; 86901; G0379; J0290; J2210; J2405; J2590; J3010; J7050; J7120; S0191